=== PATIENT | female | born 1975 | race Caucasian/White ===

== ENCOUNTER 2018-11-29 08:25 | Day surgery (SDC) | payer OTHER ==
[2018-11-28 14:38] VITALS: BMI 16.2
[~2018-11-29] VITALS: Ht 167.6 cm; Wt 87.1 kg
[2018-11-29] VITALS (12 sets, daily range): BP systolic 133–154; BP diastolic 78–93; PULSE 62–84; RESP 15–24; Ht 167.6 cm; Wt 87.1 kg
[~2018-11-29 08:25] MED LIST: LACTATED RINGER'S 1,000 ML IV SCH; SUCCINYLCHOLINE CHLORIDE 100 MG/5 ML SYG IV ONE; THYROID MEDS
[2018-11-29] MEDS ORDERED: AMLO5TAB4 PO (09:21)
[2018-11-29] MEDS ORDERED: LEVO150T64 PO (09:22)
[2018-11-29] MEDS ORDERED: BENA10TA4 PO (09:22)
--- NOTE | 2018-11-29 09:41 | HPN ---
Date/Time of Note Date/Time of Note DATE: 11/29/18 TIME: 09:41 Interval H&P Admission Note Pt. seen H&P reviewed: No system changes JAD MOELLER MD November 29, 2018 09:41
--- NOTE | 2018-11-29 09:56 | PREAC ---
Date/Time of Note Date/Time of Note DATE: 11/29/18 TIME: 09:54 Anesthesia Eval and Record Evaluation Time Pre-Procedure Interview DATE: 11/29/18 TIME: 09:54 Age 43 Sex female NPO: 8 hrs Preoperative diagnosis vaginal bleeding Planned procedure hysteroscopy, D and C Past Medical History Past Medical History: Includes Cardio: HTN Endo: Hypothyroid Musculoskeletal: Osteoarthritis Surgery & Anesthesia Issues No known issue Meds Anticoagulation: No Beta Marizol within 24 hr: No Reason Beta Marizol not given: Pt. not on B-Marizol Reported Medications Benazepril Hcl* (Benazepril Hcl*) 10 Mg Tablet, 10 MG PO DAILY, #30 TAB 11/29/18 Levothyroxine Sodium* (Levoxyl*) 150 Mcg Tablet, 150 MCG PO BEFORE BREAKFAST, #30 TAB 11/29/18 Amlodipine Besylate* (Norvasc*) 5 Mg Tablet, 5 MG PO DAILY, TAB 11/29/18 Discontinued Reported Medications [Thyroid Meds] No Conflict Check 02/27/12 Current Medications Lactated Ringer's 1,000 ml @ 125 mls/hr Q8H IV ; Start 11/29/18 at 06:00; Stop 11/29/18 at 13:59 Meds reviewed: Yes Allergies Coded Allergies: No Known Allergy (Unverified , 11/29/18) Allergies Reviewed: Yes Labs/Studies Labs Reviewed: Reviewed by anesthesiologist test: Negative (URINE HCG 11/29/18) Studies: ECG, CXR Pre-procedure Exam Last vitals Vital Signs Date Temp Pulse Resp B/P (MAP) Pulse Ox O2 O2 Flow FiO2 Time Delivery Rate 11/29/18 97.4 62 16 141/93 98 Room Air 09:38 (109) Airway: Adequate mouth opening, Adequate thyromental dist Mallampati: Mallampati II Teeth: Normal Lung: Normal Heart: Normal ASA Physical Status ASA physical status: 2 Emergency: None Planned Anesthetic General/MAC: LMA Planned Pain Management Parenteral pain med, Local by surgeon Pre-operative Attestations Prior to commencing anesthesia and surgery, the patient was re-evaluated, there was verification of: *The patient's identity *The results of appropriate recent lab work and preoperative vital signs *The above evaluation not changing prior to induction *Anesthetic plan, risk benefits, alternative and complications discussed with patient/family; questions answered; patient/family understands, accepts and wishes to proceed. BHAKTI CHRISTIANSON November 29, 2018 09:56
[2018-11-29] MEDS ORDERED: GLYCOPYRROLATE 0.4 MG INJ ONE (10:01)
[2018-11-29] MEDS ORDERED: NEOSTIGMINE 3 MG/3 ML SYRINGE ONE (10:01)
[2018-11-29] MEDS ORDERED: FENTAnyl 50 MCG/ML VIAL ONE (10:01)
[2018-11-29] MEDS ORDERED: ROCURONIUM 50 MG INJ ONE (10:01)
[2018-11-29] MEDS ORDERED: MIDAZOLAM 1 MG/ML 2 ML INJ ONE (10:01)
[2018-11-29] MEDS ORDERED: PROPOFOL 20 ML ONE (10:01)
[2018-11-29] MEDS ORDERED: CEFAZOLIN 1 GM INJ ONE (10:01)
[2018-11-29] MEDS ORDERED: DEXAMETHASONE 4 MG/ML 5 ML INJ ONE (10:02)
[2018-11-29] MEDS ORDERED: ONDANSETRON 4 MG INJ ONE (10:02)
[2018-11-29] MEDS ORDERED: LABETALOL HCL 20MG INJ IV PRN (10:30)
[2018-11-29] MEDS ORDERED: hydrALAzine 20 MG INJ IV PRN (10:30)
[2018-11-29] MEDS ORDERED: EPHEDrine 25 MG/5 ML SYG IV PRN (10:30)
[2018-11-29] MEDS ORDERED: FENTAnyl 50 MCG/ML VIAL IV PRN ×3 (10:30)
[2018-11-29] MEDS ORDERED: MEPERIDINE 25 MG INJ IV PRN (10:30)
[2018-11-29] MEDS ORDERED: DIPHENHYDRAMINE 50 MG INJ IV PRN (10:30)
[2018-11-29] MEDS ORDERED: ALBUTEROL 0.083% (NEB) 2.5 MG/3 ML AMP HHN PRN (10:30)
[2018-11-29] MEDS ORDERED: OXYCODONE/ACETAMINOPHEN (5/325) TAB PO PRN ×2 (10:30)
[2018-11-29] MEDS ORDERED: HYDROmorphONE 1 MG/5 ML IV SYRINGE IV PRN ×3 (10:30)
[2018-11-29] MEDS ORDERED: TRIMETHOBENZAMIDE 100 MG/ML VIAL IM PRN (10:30)
[2018-11-29] MEDS ORDERED: IPRATROPIUM (NEB) 0.5 MG/2.5 ML AMP HHN PRN (10:30)
[2018-11-29] MEDS ORDERED: MIDAZOLAM 1 MG/ML 2 ML INJ IV PRN (10:30)
[2018-11-29] MEDS ORDERED: ONDANSETRON 4 MG INJ IV PRN (10:30)
--- NOTE | 2018-11-29 11:01 | SIPON ---
Date/Time of Note Date/Time of Note DATE: 11/29/18 TIME: 10:59 Operative Report Preoperative Diagnosis menometrorrhagia Postoperative Diagnosis see pathologic report Operation/Procedure Performed Operative hysteroscopy endometrial shaving Surgeon see signature line physical therapy assistant MAYTE Lara Anesthesia: general Estimated blood loss: 0 - 10 ml's Transfusion Required none Specimen endometrial curetting Grafts/Implants none Complications none JAD MOELLER MD November 29, 2018 11:01
--- NOTE | 2018-11-29 11:02 | PD.PPDC ---
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
--- NOTE | 2018-11-29 11:37 | PAC ---
Date/Time of Note Date/Time of Note DATE: 11/29/18 TIME: 11:37 Post-Anesthesia Notes Post-Anesthesia Note Last documented vital signs Vital Signs Date Temp Pulse Resp B/P (MAP) Pulse Ox O2 O2 Flow FiO2 Time Delivery Rate 11/29/18 74 20 145/78 97 Room Air 11:23 (100) 11/29/18 98.0 11:07 Activity: WNL Respiratory function: WNL Cardiovascular function: WNL Mental status: Baseline Pain reasonably controlled: Yes Hydration appropriate: Yes Nausea/Vomiting absent: Yes Mac Menchaca M.D. November 29, 2018 11:37
--- NOTE | 2018-12-04 14:50 | OPR ---
DATE OF OPERATION: 11/29/2018 PREOPERATIVE DIAGNOSIS: Abnormal uterine bleeding. POSTOPERATIVE DIAGNOSIS: See pathological report. PROCEDURE: Hysteroscopic endometrial curettage. ANESTHESIA: General. ANESTHESIOLOGIST: Refer to the chart. ESTIMATED BLOOD LOSS: Negligible. SURGEON: Armando Bustamante MD PROCEDURE IN DETAILS: Under the proper induction of general anesthesia, the patient was placed in do rsal lithotomy position. Perineal area and vagina wall was prepped and draped in usual aseptic felix r. Bimanual examination revealed uterus is normal size, freely mobile. There was no palpable adnexa l pathology. Weighted speculum was introduced into the vagina. Cervix was identified. Anterior lip of the cervix was grasped with a single tooth tenaculum. The uterine cavity was sounded, which was 8 cm and os was dilated up to 7. Hysteroscope was prepared and connected to the normal saline as med ia in usual fashion. Hysteroscope was introduced into the uterus starting from the endocervical sinai l and advanced so the fundus was visualized and both cornua were visualized. Picture was taken. No abnormal finding noted. There was no prominent endometrium, just atrophic endometrium. Soft tissue shaver was introduced through the channel and the entire cavity was curetted in all directions, obtaining of scanty tissue which was retrieved in the retriever. After the procedure was completed, picture was taken and hysteroscope was removed and all the instruments were removed from the operati ve field. Fluid deficit was less than 300. There was a little bleeding in the cervix after the inst ruments were removed which was controlled with Allis clamp. The patient withstood procedure well and was sent to the recovery room in stable condition. Dictated By: ARMANDO ALVAREZ/KEVIN Conf#: [id number] DID#: [id number]
== END 2018-11-29 13:10 | disposition home or self-care (01) ==
LOC: SDS 08:25
PROVIDERS: ATTEND Obstetrics & Gynecology
DX: N93.9 Abnormal uterine and vaginal bleeding, unspecified (principal)
CPT/HCPCS: 58558; 84703; 88305; J0690; J1100; J1170; J2250; J2405; J3010; J2710